=== PATIENT | female | born 1980 | race Caucasian/White ===

== ENCOUNTER → 2017-01-10 | Outpatient (CLI) | payer OTHER ==
--- NOTE | 2017-01-10 11:19 | US ---
Dear Dr. García, Thank you for sending your patient, Leonor Kelley, to us for an US and consultation to assess lacho herberth. As you know, the patient is a 36 y.o. G2, P1001 at 20 weeks and 2 days with an EDC of 05/28/17 b ased on a 13 week US. Her is complicated by AMA. Leonor's medical history is remarkable for a remote history of alcohol abuse and bulimia in 2002. She is currently treated for depression which is well-controlled on Zoloft 50 mg daily. Her surgical hist ory is remarkable for a repair of a broke clavicle in 2002. Her OB history is significant for a term in 2014. She underwent a colposcopy in 2004, but has not had any excisional procedures or cryoth erapy. She is current taking Zoloft and PNV. She denies any drug allergies. Leonor traveled to [place] without her in March of 2016. She conceived in September 2016 which is >8 weeks from potential Zika exposure. She had serum testing which was negative. Genetic Screening: NIPT reassuring (46 XY), AFP neg The patient denies any uterine contractions, vaginal bleeding, or loss of fluid. Today, she is withou t complaints. US FINDINGS: Number of fetuses: 1 Placental location: Anterior, No previa Placental Cord Insertion: Central presentation: Vertex Cervix: 3.7 cm, transabdominally MVP: 6.3 cm The adnexa were evaluated. No pathology was seen. Right ovary: Normal Left ovary: Normal heart rate: 161 bpm Measurements: Biparietal diameter: 46 mm, 19 weeks 6 days Head circumference: 178 mm, 20 weeks 2 days Abdominal circumference: 149 mm, 20 weeks 2 days Femur length: 33 mm, 20 weeks 2 days Humerus length: 31 mm, 20 weeks 2 days Transcerebellar diameter: 20 mm, 19 weeks 4 days Average ultrasound age: 20 weeks 2 days Estimated weight: 337 g weight percentile: 39% Anatomy: Supratentorial brain: Normal Cerebral lateral ventricle: 4 mm Posterior fossa: Normal Cisterna magna: 5 mm Nuchal fold: 4.6 mm Face: - Lip: Normal - Profile: Normal - Alveolar Ridge: Appears intact Spine: -- Cervical: Normal -- Thoracic: Normal -- Lumbar: Normal -- Sacral: Normal Heart: -- 4 Chamber: Normal -- Intraventricular septum: Appears intact by Color and Spectral US -- Right Outflow Tract: Normal -- Left Outflow Tract: Normal -- 3 Vessel View: Normal -- Aortic Arch: Normal -- Ductal Arch: Normal -- Caval View: Normal Diaphragm: Appears intact Stomach: Normal Abdominal Umbilical Cord Insertion: Normal Right kidney: Normal Left kidney: Normal Bladder: Normal Number of cord vessels: 3 Upper extremities: -- Right Arm: Normal -- Right Hand: Normal -- Left Arm: Normal -- Left Hand: Normal Lower extremities: -- Right Leg: Normal -- Right Foot: Normal, no club foot -- Left Leg: Normal -- Left Foot: Normal, no club foot Gender: Male IMPRESSION: 1. Anatomy: The fetus measures appropriate for gestational age, measuring a normal weight and percen tile. Visualization of the fetus today reveals no overt structural anomalies. There is evidence of no rmal amniotic fluid, and movement was seen during the examination. 2. Genetic Screening: This patient has had reassuring NIPT results this . Today, no markers of aneuploidy were seen. While her screening and US results are reassuring, we reviewed that fe cecilio aneuploidy can only be definitively excluded with diagnostic testing via amniocentesis. After thi s discussion, the patient does not wish to proceed with invasive testing at this time. 3. Not at Risk for Zika Exposure: Leonor conceived >8 weeks after potential exposure. Thus, she is NOT at risk for Zika infection. She does not require additional screening in this . Thank you again for sending this patient to see us today. Approximately 15 minutes of a total visit t michel of 12 minutes were spent with this patient today in direct face to face counseling regarding toda y's US findings and the above recommendations. Please feel free to contact me with any questions at . Liza Gomez MD Maternal- Medicine
--- NOTE | 2017-01-10 17:07 | US ---
Obstetrical Sonogram Detail Clinical Indications: Advanced maternal age. Evaluate growth and development. Technique: Longitudinal and transverse images are obtained. Dr. Gomez was present for the examinati on. Color Doppler evaluation is employed for assessment of vascularity. Findings: A single fetus is present in vertex presentation. Maternal cervical length is estimated at 3.7 cm. T he amount of amniotic fluid is normal with an MVP of 6.3 cm. The placenta is located anterior with no placenta previa. A three-vessel cord is documented with a central insertion on the placenta. motion is identified. cardiac activity is documented with a heart rate estimated at 161 b eats per minute. A four-chamber heart view is obtained. Outflow tracts are evaluated. stomach, kidneys and bladder are normal. supratentorial brain, posterior fossa and neural axis appear no rmal. No abnormality is identified. Maternal ovaries are visualized and appear normal. biometry: Biparietal diameter = 46 mm = 19 weeks 6 days Head circumference = 178 mm = 20 weeks 2 days Abdominal circumference = 149 mm = 20 weeks 2 days Femur length = 33 mm = 20 weeks 2 days Estimated weight 337 +/- 49 grams. This is at the 39th percentile based on last menstrual perio d. The estimated delivery date by ultrasound is May 28, 2017. This compares to the clinical date of May. Impression: Single live intrauterine gestation with estimated age by ultrasound of 20 weeks 2 days with an estima tamar delivery date of May 28, 2017. No abnormality is identified. Please see Dr. Gomez;s report for findings and recommendations.
== END ==
LOC: FIMAGING 09:54
PROVIDERS: ATTEND Obstetrics & Gynecology
DX: O09.522 Supervision of elderly multigravida, second trimester (principal); Z3A.20 20 weeks gestation of pregnancy

== ENCOUNTER 2017-05-24 19:40 | Inpatient (IN) | payer OTHER ==
[2017-05-24] MEDS ORDERED: OLIVE OIL 118 ML BTL MISC PRN (20:04)
[2017-05-24] MEDS ORDERED: TERBUTALINE SULFATE 1 MG/ML VIAL IV PRN (20:04)
[2017-05-24] MEDS ORDERED: OXYTOCIN/RINGERS LACTATE 1,000 ML IV PRN (20:04)
[2017-05-24] MEDS ORDERED: LR 1,000 ML IV PRN (20:04)
[2017-05-24] MEDS ORDERED: EPSOM SALT 454 GM TP PRN (20:04)
[2017-05-24 20:45] LABS: % IMMATURE GRANULYOCYTES 1.4 % (0.0-1.1); ABSOLUTE IMMATURE GRANULOCYTES 0.19 10^3/uL (0.00-0.10); ADD DIFF? NO; ADD MORPH? NO; ADD SCAN? NO; ATYPICAL LYMPHOCYTE FLAG 0 (0-99); FRAGMENT RBC FLAG 0 (0-99); HEMATOCRIT 39.7 % (38.0-47.0); HEMOGLOBIN 13.5 g/dL (12.6-16.3); LEFT SHIFT FLG 10 (0-99); LIPEMIA HEMOLYSIS FLAG 90 (0-99); MEAN CELL VOLUME 94.1 fL (81.5-99.8); MEAN PLATELET VOLUME 10.5 fL (8.7-11.7); PLATELET CLUMPS FLAG 40 (0-99); PLATELET COUNT 251 10^3/uL (150-400); RED BLOOD CELL COUNT 4.22 10^6/uL (4.18-5.33); RED CELL DISTRIBUTION WIDTH 13.2 % (11.5-15.2)
[2017-05-24] MEDS ORDERED: MISOPROSTOL 200 MCG TAB ONE (20:57)
--- NOTE | 2017-05-24 21:11 | PDGENHP ---
History and Physical - Chief Complaint 37 y.o. at 39 weeks in active labor - History of Present Illness 37 y.o. female at 39 weeks in active labor. VSS-afebrile NST- reactive CAT I. GBS NEG History Information - Allergies/Home Medication List Allergies/Adverse Reactions: No Known Allergies Allergy (Unverified 12/07/14 06:18) Home Medications: Folic Acid 1 cap PO DAILY 12/07/14 [Last Taken 12/06/14 21:00] Lactobacillus Acidophilus [Probiotic] 1 cap PO DAILY 12/07/14 [Last Taken 21:00] Vit27&Calcium/Iron/FA [] 1 tab PO DAILY 12/07/14 [Last Taken 21:00] Sertraline HCl [Zoloft 25mg (*)] 1 tab PO DAILY 12/07/14 [Last Taken 12/07/14 06 :00] I have personally reviewed and updated: family history, medical history, social history, surgical history - Past Medical History Additional medical history: Hx of alcoholism, bulimia, HPV, left clavicular fracture. - Surgical History Reports: no pertinent surgical hx - Family History Additional family history: brother- depression, brother-hypothyroidism, P-Aunt- skin cancer - Social History Smoking Status: Never smoked Alcohol Use: None Drug Use: None Review of Systems ROS: 10pt was reviewed & negative except for what was stated in HPI & below Constitutional: Reports: no symptoms EENMT: Reports: no symptoms Cardiac: Reports: no symptoms Respiratory: Reports: no symptoms Gastrointestinal: Reports: no symptoms Genitourinary: Reports: no symptoms Muscolosketal: Reports: no symptoms Skin: Reports: no symptoms Neurological: Reports: no symptoms Hematologic/Lymphatic: Reports: no symptoms Immunologic/Allergy: Reports: no symptoms Physical Exam Constitutional: no apparent distress Ears, Nose, Mouth, Throat: moist mucous membranes, hearing normal Cardiovascular: regular rate and rhythym, no murmur, rub, or gallop Respiratory: no respiratory distress, no rales or rhonchi Gastrointestinal: soft, non-tender abdomen, no palpable masses Genitourinary: no bladder fullness Skin: warm, normal color Musculoskeletal: full muscle strength, no muscle tenderness Neurologic: AAOx3, sensation intact bilaterally Psychiatric: interacting appropriately, not anxious Lab Data & Imaging Review 05/24/17 20:15 WBC 13.94 10^3/uL (3.80-9.50) H 05/24/17 20:15 RBC 4.22 10^6/uL (4.18-5.33) 05/24/17 20:15 Hgb 13.5 g/dL (12.6-16.3) 05/24/17 20:15 Hct 39.7 % (38.0-47.0) 05/24/17 20:15 MCV 94.1 fL (81.5-99.8) 05/24/17 20:15 MCH 32.0 pg (27.9-34.1) 05/24/17 20:15 MCHC 34.0 g/dL (32.4-36.7) 05/24/17 20:15 RDW 13.2 % (11.5-15.2) 05/24/17 20:15 Plt Count 251 10^3/uL (150-400) 05/24/17 20:15 MPV 10.5 fL (8.7-11.7) 05/24/17 20:15 Neut % (Auto) 77.8 % (39.3-74.2) H 05/24/17 20:15 Lymph % (Auto) 10.2 % (15.0-45.0) L 05/24/17 20:15 Rincon % (Auto) 8.8 % (4.5-13.0) 05/24/17 20:15 Eos % (Auto) 1.4 % (0.6-7.6) 05/24/17 20:15 Baso % (Auto) 0.4 % (0.3-1.7) 05/24/17 20:15 Nucleat RBC Rel Count 0.0 % (0.0-0.2) 05/24/17 20:15 Absolute Neuts (auto) 10.86 10^3/uL (1.70-6.50) H 05/24/17 20:15 Absolute Lymphs (auto) 1.42 10^3/uL (1.00-3.00) 05/24/17 20:15 Absolute Monos (auto) 1.22 10^3/uL (0.30-0.80) H 05/24/17 20:15 Absolute Eos (auto) 0.20 10^3/uL (0.03-0.40) 05/24/17 20:15 Absolute Basos (auto) 0.05 10^3/uL (0.02-0.10) 05/24/17 20:15 Absolute Nucleated RBC 0.00 10^3/uL (0-0.01) 05/24/17 20:15 Immature Gran % 1.4 % (0.0-1.1) H 05/24/17 20:15 Immature Gran # 0.19 10^3/uL (0.00-0.10) H 05/24/17 20:15 Patient ABO/Rh A POSITIVE 05/24/17 20: Antibody Screen NEGATIVE 05/24/17 20:15 Assessment & Plan Assessment: 37 y.o. at 39 weeks in active labor. VSS_ afebrile. NST- reactive GBS NEG. Admit to L&D for active labor. Plan: Admit to L&D AROM per patient VS and EFM per protocol Anticipate .
[2017-05-24] MEDS ORDERED: HYDROCORTISONE 0.5% CREAM TP PRN (21:16)
[2017-05-24] MEDS ORDERED: HYDROCODONE/APAP 5/325 TAB PO PRN (21:16)
[2017-05-24] MEDS ORDERED: SIMETHICONE 80 MG TAB CHEW PO PRN (21:16)
[2017-05-24] MEDS ORDERED: ACETAMINOPHEN 325 MG TAB PO PRN (21:16)
--- NOTE | 2017-05-24 21:16 | OBDEL ---
Info Type: Vaginal GBS+: No Indications for Delivery: Spontaneous Labor Vaginal Delivery - Labor and Delivery Onset of Contractions Date: 05/24/17 Onset of Contractions Time: 17:30 Onset of Contractions Type: Spontaneous Rupture of Membranes Date: 05/24/17 Rupture of Membranes Time: 20:30 Rupture of Membranes Type: Artificial Amniotic Fluid Color: Clear Dilation Complete Date: 05/24/17 Dilation Complete Time: 20:40 Placenta Delivery Date: 05/24/17 Placenta Delivery Time: 20:49 Total Hours of Labor: 3 Non-surgical Procedures: Amniotomy Vaginal Sponge Count Correct: Yes (10) Kenly Data Kumar Delivery Date: 05/24/17 Delivery Time: 20:49 LAURA: 05/28/17 Gestational Age: 39 week(s) and 3 day(s) Sex of Infant: Male Score (1 Min): 7 Score (5 Min): 8 ICD10 Worksheet Patient Problems: Problems Problem Status Onset Gestational HTN Acute Spontaneous vaginal delivery Acute
[2017-05-24] MEDS: IBUPROFEN 600 MG TAB PO PRN (23:47)
[2017-05-25 01:24] VITALS: RESP 16
[2017-05-25] MEDS: IBUPROFEN 600 MG TAB PO PRN ×3 (05:56→19:56)
[2017-05-25] MEDS: DOCUSATE SODIUM 100 MG CAP PO PRN ×2 (09:38→19:56)
--- NOTE | 2017-05-25 09:59 | OBPP ---
Progress Note Assessment/Plan: Assessment: 37 y.o. s/p PPD#1. Recovering well with good pain control. . Plan: Routine care. consult PRN. 05/25/17 09:57 Subjective: Reports feeling great with good pain control and minimal vaginal bleeding. well. Eating and drinking without nausea or vomiting. Ambulating without vertigo. Appropriate mood with good support system. Objective: 05/24/17 20:15 Patient ABO/Rh A POSITIVE 05/24/17 20:15 Temp Pulse Resp BP Pulse Ox 36.2 C 85 16 111/71 94 05/25/17 09:30 05/25/17 09:30 05/25/17 09:30 05/25/17 09:30 05/25/17 01:23 Uterine Position/Fundal Height: Umbilicus -1 Uterine Tone: Firm Physical Exam - Physical Exam General Appearance: WD/WN, alert, no apparent distress EENT: normal ENT inspection Neck: non-tender, full range of motion, normal inspection Respiratory: lungs clear, normal breath sounds Cardiac/Chest: regular rate, rhythm Abdomen: normal bowel sounds, non-tender, soft Extremities: non-tender, normal inspection Back: Normal inspection Skin: normal color, warm/dry Neuro/Psych: alert, normal mood/affect, oriented x 3
[2017-05-25 21:38] VITALS: O2SAT 96
[2017-05-26] MEDS: IBUPROFEN 600 MG TAB PO PRN ×2 (01:59→08:01)
--- NOTE | 2017-05-26 09:09 | OBGCSDC ---
General Delivery Information - General Info : 2 Para: 2 Abortions: 0 Delivery Physician/CNM: Katherine Marroquin Admission Date: 05/24/17 Labs: Patient ABO/Rh A POSITIVE 05/24/17 20:15 Hct 39.7 % (38.0-47.0) 05/24/17 20:15 Vaginal - Diagnosis Labor: Spontaneous Presentation at Delivery: Vertex Rupture of Membranes Type: Artificial Amniotic Fluid Color: Clear Delivery Events: None - Operations/Procedures Non-surgical Procedures: Amniotomy L&D Analgesia/Anesthesia Type: None - Delivery Type: Vaginal Non-surgical Procedures: Amniotomy Data Kumar Delivery Date: 05/24/17 Delivery Time: 20:49 LAURA: 05/28/17 Gestational Age: 39 week(s) and 5 day(s) Sex of Infant: Male Score (1 Min): 7 Score (5 Min): 8 Discharge Information - Discharge Information Discharge Medications: Ibuprofen, Oxycodone, Vitamins Condition: Good Instruction/Follow Up: Four Weeks, Six Weeks Discharge Physician/CNM: Katherine Marroquin
[2017-05-26] MEDS: DOCUSATE SODIUM 100 MG CAP PO PRN (09:16)
[2017-05-26 09:18] VITALS: BP 115/75; PULSE 79; TEMP 96.5
== END 2017-05-26 11:50 | disposition home or self-care (01) | DRG 775 ==
LOC: FLD 19:40 → FOB 22:22
PROVIDERS: ADMIT Midwife; ATTEND Midwife
DX: O80 Encounter for full-term uncomplicated delivery (principal); Z3A.39 39 weeks gestation of pregnancy; Z37.0 Single live birth
CPT/HCPCS: J2590

== ENCOUNTER → 2018-12-25 | Outpatient (CLI) | payer OTHER | LOC: BMCIMAGING 16:29 | PROVIDERS: ATTEND Family Medicine | DX: M25.512 Pain in left shoulder (principal) ==